=== PATIENT | male | born 1925 | race Hispanic/Latino ===

== ENCOUNTER 2016-07-09 08:26 | Inpatient (IN) | payer MEDICARE ==
[2016-07-09 08:31] VITALS: BMI 23.2
--- NOTE | 2016-07-09 08:52 | ED PDOC ---
Arrival/HPI - General Time Seen by Provider: 07/09/16 08:34 Historian: Patient - History of Present Illness Narrative History of Present Illness (Text): 07/09/16 08:38 A 89 year old female, whose past medical history includes hypertension, BPH, renal insufficiency and Anemia, presents to the emergency department complaining of left hip pain after a mechanical fall. Patient reports recently his left knee has been buckling up on him. While walking today his knee buckled up causing him to fall forward. Patient did not hit his head or loss consciousness. Patient denies any dizziness, lightheadedness, chest pain, or other complaints prior to or after the fall. Patient denies any numbness to the lower extremities. PMD: Dr. Colon Time/Duration: Prior to Arrival Symptom Onset: Sudden Symptom Course: Unchanged Quality: Other Activities at Onset: Rest Context: Walking, Home Past Medical History - Provider Review Nursing Documentation Reviewed: Yes - Tetanus Immunization Tetanus Immunization: Unknown - Cardiac Hx Pacemaker: No - Neurological Hx Paralysis: No - Renal Other/Comment: renal insufficensy - Hematological/Oncological Hx Blood Transfusions: Yes Hx Blood Transfusion Reaction: No - Integumentary Hx Eczema: Yes - Musculoskeletal/Rheumatological Hx Musculoskeletal Disorders: No - Genitourinary/Gynecological Hx Prostate Problems: Yes - Psychiatric Hx Emotional Abuse: No Hx Physical Abuse: No Hx Substance Use: No - Past Surgical History Past Surgical History: No Previous - Anesthesia Hx Anesthesia Reactions: No Hx Malignant Hyperthermia: No - Suicidal Assessment Feels Threatened In Home Enviroment: No Family/Social History - Physician Review Nursing Documentation Reviewed: Yes Family/Social History: Unknown Family HX Smoking Status: Never Smoked Hx Alcohol Use: Yes (pt drinks whiskey daily x1) Hx Substance Use: No Hx Substance Use Treatment: No Allergies/Home Meds Allergies/Adverse Reactions: Allergies Penicillins Allergy (Verified 07/09/16 08:32) RASH Home Medications: Home Meds Medication Instructions Recorded Confirmed Tamsulosin [Flomax] 0.4 mg PO DAILY 11/13/14 07/09/16 Bimatoprost [Lumigan 2.5 ml] 1 drop BOTHEYES HS 02/05/15 07/09/16 Bromfenac Sodium [Prolensa 3 ml] 1 drop LEFTEYE DAILY 02/05/15 07/09/16 Brimonidine 0.15% [Alphagan P 5 Ml] 1 drop OU DAILY 07/09/16 07/09/16 Homatropine HBr [Homatropine 1 drop LEFTEYE DAILY 07/09/16 07/09/16 Hydrobromide] Lisinopril [Zestril] 20 mg PO DAILY 07/09/16 07/09/16 Omeprazole 20 mg PO DAILY 07/09/16 07/09/16 Review of Systems - Physician Review All systems were reviewed & negative as marked: Yes - Review of Systems Constitutional: absent: Fevers Respiratory: absent: SOB Cardiovascular: absent: Chest Pain Musculoskeletal: Other (left hip and left knee pain) Neurological: absent: Dizziness, Focal Weakness, Other (lightheadedness) Physical Exam Vital Signs Reviewed: Yes Vital Signs Temp Pulse Resp BP Pulse Ox 07/09/16 12:07 65 18 146/73 99 07/09/16 08:32 98.7 F 82 18 151/71 H 97 Temperature: Afebrile Blood Pressure: Hypertensive Pulse: Regular Respiratory Rate: Normal Appearance: Positive for: Well-Appearing, Non-Toxic, Comfortable Pain Distress: None Mental Status: Positive for: Alert and Oriented X 3 - Systems Exam Head: Present: Atraumatic, Normocephalic Pupils: Present: PERRL Extroacular Muscles: Present: EOMI Conjunctiva: Present: Normal Mouth: Present: Moist Mucous Membranes Neck: Present: Normal Range of Motion Respiratory/Chest: Present: Clear to Auscultation, Good Air Exchange. No: Respiratory Distress, Accessory Muscle Use Cardiovascular: Present: Regular Rate and Rhythm, Normal S1, S2. No: Murmurs Abdomen: Present: Normal Bowel Sounds. No: Tenderness, Distention, Peritoneal Signs Back: Present: Normal Inspection Upper Extremity: Present: Normal Inspection. No: Cyanosis, Edema Lower Extremity: Present: NORMAL PULSES, Normal ROM (tenderness with motion of the left hip and left knee), Tenderness, Swelling (left knee swelling (chronic)) , Other (left lower extremity shortened and external rotated). No: Edema, Temperature Abnormalties Neurological: Present: GCS=15, CN II-XII Intact, Speech Normal, Motor Func Grossly Intact, Normal Sensory Function Skin: Present: Warm, Dry, Normal Color. No: Rashes Psychiatric: Present: Alert, Oriented x 3, Normal Insight, Normal Concentration Medical Decision Making ED Course and Treatment: 07/09/16 08:38 Impression: A 89 year old male with left hip pain after a mechanical fall. Differential Diagnosis include but are not limited to: fracture vs. dislocation vs. sprain Plan: -- EKG -- Left Hip X-ray -- Left Knee X-ray -- Labs -- Urinalysis -- Reassess and disposition Prior Visits: Notes and results from previous visits were reviewed. The patient last presented to the emergency department on 11/15/14 for evaluation of abnormal labs. Progress Notes: EKG: Ordered, reviewed, and independently interpreted the EKG. Rate : 83 BPM Rhythm : NSR Interpretation : Right bundle branch block, left axis deviation 07/09/16 11:13 Left Hip X-ray Impression: As read by me, shows fracture of the left hip. Case discussed with Dr. oClon, who is aware and agrees with the plan to admit the patient to Med/Surg under his services for Left Hip Fracture. He notes to consult Dr. Morales. I have discussed the results and plan with the patient, who expresses understanding. Patient given the opportunity to ask question, all questions were answered and there is agreement with the plan to be admitted to the hospital. 07/09/16 11:15 Left Hip and Pelvis: Creator : Nathan Hall MD COMPARISON: FINDINGS: There is a displaced comminuted intertrochanteric fracture of the left hip. The pelvis is intact IMPRESSION: There is a displaced comminuted intertrochanteric fracture of the left hip. The pelvis is intact. Left Knee X-ray: Creator : Nathan Hall MD COMPARISON: None. FINDINGS: BONES: Normal. No fracture. JOINTS: Normal. No osteoarthritis. JOINT EFFUSION: None. OTHER FINDINGS: None. IMPRESSION: Negative study - Lab Interpretations Lab Results: 07/09/16 08:50 07/09/16 08:50 Lab Results 07/09/16 08:50: Sodium 142, Potassium 4.3, Chloride 106, Carbon Dioxide 25, Anion Gap 15, BUN 36 H, Creatinine 1.4, Est GFR ( Amer) 58, Est GFR (Non- Af Amer) 48, Random Glucose 115 H, Calcium 8.9, Magnesium 2.0, Total Bilirubin 1.1, AST 56, ALT 44, Alkaline Phosphatase 100, Lactate Dehydrogenase 863 H, Total Creatine Kinase 722 H, CK-MB (CK-2) 6.3 H, CK-MB (CK-2) % 0.9 L, Troponin I 0.02 D, Total Protein 7.0, Albumin 3.8, Globulin 3.2, Albumin/Globulin Ratio 1.2 07/09/16 08:50: WBC 11.2 H, RBC 3.31 L, Hgb 10.8 L, Hct 31.1 L, MCV 94.0, MCH 32.6, MCHC 34.7, RDW 12.9, Plt Count 171, MPV 10.1, Gran % 82.4 H, Lymph % (Auto ) 4.9 L, [place] % (Auto) 12.4 H, Eos % (Auto) 0.1 L, Baso % (Auto) 0.2, Gran # 9.21 H, Lymph # 0.[address] L, [place] # 1.4 H, Eos # 0.0, Baso # 0.02 I have reviewed the lab results: Yes - RAD Interpretation Radiology Orders: 07/09/16 08:49 HIP MIN 2V W/ PELVIS LT [RAD] Stat KNEE LEFT 2 VIEWS (AP & LAT) [RAD] Stat - Medication Orders Current Medication Orders: Acetaminophen (Tylenol 325mg Tab) 650 mg PO Q4H PRN PRN Reason: Pain, moderate (4-7) Home Med (Home Med) 1 unit OU HS MAX Home Med (Home Med) 1 unit OS DAILY MAX Home Med (Home Med) 1 unit OS DAILY MAX Lisinopril (Zestril) 20 mg PO DAILY MAX Pantoprazole Sodium (Protonix Ec Tab) 20 mg PO 0730 MAX Tamsulosin HCl (Flomax) 0.4 mg PO DAILY MAX Discontinued Medications Acetaminophen (Tylenol 325mg Tab) 975 mg PO STAT STA Stop: 07/09/16 08:47 Last Admin: 07/09/16 09:35 Dose: 975 mg Home Med (Home Med) 1 unit OS DAILY MAX - Scribe Statement The provider has reviewed the documentation as recorded by the Dakota Valladares Provider Scribe Attestation: All medical record entries made by the Scribe were at my direction and personally dictated by me. I have reviewed the chart and agree that the record accurately reflects my personal performance of the history, physical exam, medical decision making, and the department course for this patient. I have also personally directed, reviewed, and agree with the discharge instructions and disposition. Disposition/Present on Arrival - Present on Arrival Any Indicators Present on Arrival: No History of DVT/PE: No History of Uncontrolled Diabetes: No Urinary Catheter: No History Surgical Site Infection Following: None - Disposition Have Diagnosis and Disposition been Completed?: Yes Diagnosis: Hip fracture Disposition: HOSPITALIZED Disposition Time: 11:13 Patient Plan: Admission Condition: FAIR
[2016-07-09 09:53] LABS: ADD MANUAL DIFF? NO
[2016-07-09 09:54] LABS: BASO # 0.02 K/mm3 (0.0-2.0); BASO % 0.2 % (0.0-3.0); EOS % 0.1 % (1.5-5.0); GRAN # 9.21 (1.4-6.5); GRAN % 82.4 % (50.0-68.0); HEMATOCRIT 31.1 % (42.0-52.0); LYMPH # 0.6 (1.2-3.4); LYMPH % 4.9 % (22.0-35.0); MEAN CORPUSCULAR HEMOGLOBIN 32.6 pg (25.0-35.0); MEAN CORPUSCULAR HGB CONC 34.7 g/dl (31.0-37.0); MEAN PLATELET VOLUME 10.1 fl (7.0-11.0); MONO # 1.4 (0.1-0.6); MONO % 12.4 % (1.0-6.0); PLATELET COUNT 171 10^3/uL (120.0-450.0); RED CELL DISTRIBUTION WIDTH 12.9 % (11.5-14.5); WHITE BLOOD COUNT 11.2 10^3/ul (4.5-11.0)
[2016-07-09 10:07] LABS: ALB/GLOB RATIO 1.2 (1.1-1.8); BILIRUBIN,TOTAL 1.1 mg/dL (0.2-1.3); CALCIUM 8.9 mg/dL (8.4-10.5); POTASSIUM 4.3 mmol/L (3.6-5.0)
[2016-07-09 10:18] LABS: TROPONIN I 0.02 ng/mL
--- NOTE | 2016-07-09 11:13 | RAD ---
PROCEDURE: Left Knee Radiographs. HISTORY: Pain. COMPARISON: None. FINDINGS: BONES: Normal. No fracture. JOINTS: Normal. No osteoarthritis. JOINT EFFUSION: None. OTHER FINDINGS: None. IMPRESSION: Negative study
--- NOTE | 2016-07-09 11:14 | RAD ---
PROCEDURE: Pelvis and left hip HISTORY: fall r/o fx COMPARISON: TECHNIQUE: Three views FINDINGS: There is a displaced comminuted intertrochanteric fracture of the left hip. The pelvis is intact IMPRESSION: There is a displaced comminuted intertrochanteric fracture of the left hip. The pelvis is intact
--- NOTE | 2016-07-09 12:56 | RAD ---
HISTORY: med clearance COMPARISON: 10/19/2014 FINDINGS: LUNGS: No active pulmonary disease. PLEURA: No significant pleural effusion identified, no pneumothorax apparent. CARDIOVASCULAR: Normal. OSSEOUS STRUCTURES: No significant abnormalities. VISUALIZED UPPER ABDOMEN: Normal. OTHER FINDINGS: None. IMPRESSION: No active disease.
[2016-07-09 13:05] LABS: URINE BILIRUBIN NEGATIVE (NEGATIVE); URINE BLOOD TRACE-INTACT (NEGATIVE); URINE GLUCOSE (UA) NEGATIVE (NEGATIVE); URINE KETONE NEGATIVE (NEGATIVE); URINE LEUKOCYTE ESTERASE NEGATIVE Leu/uL (NEGATIVE); URINE PROTEIN 30 mg/dL (<30 mg/dL); URINE UROBILINOGEN 0.2 E.U./dL (<1 E.U./dL)
[2016-07-09 13:08] LABS: URINE APPEARANCE SL CLOUDY (CLEAR); URINE COLOR YELLOW (YELLOW)
[2016-07-09 13:13] LABS: URINE BACTERIA TRACE (NEG); URINE RBC 0 - 2 /hpf (0-2); URINE WBC 0 - 2 /hpf (0-6)
[2016-07-09 14:06] LABS: INR 1.1 (0.93-1.08); PARTIAL THROMBOPLASTIN TIME 30.7 Seconds (23.7-30.8)
[2016-07-09] MEDS ORDERED: Sodium Chloride 0.9% 1,000 ML IV SCH (16:15)
--- NOTE | 2016-07-09 17:12 | CARD ---
APPROVED REPORT EKG Measurement Heart [id number] <Conclusion> Normal sinus rhythm Left axis deviation Right bundle branch block Abnormal ECG
--- NOTE | 2016-07-09 17:39 | CP.PCM.CON ---
History of Present Illness - History of Present Illness History of Present Illness: Patient is an 89 y/o male with hx HTN, BPH, renal insufficiency, chronic anemia who presented to the ED via EMS s/p fall at home. Patient states his knees gave out last night while at home. He fell to the floor onto his left side injuring the left hip. Patient denies syncope, LOC or head trauma. He reports multiple similar falls recently. Currently the patient complains of left hip pain, which is worse with ROM. He denies numbness or parasthesias to the left limb. He denies headache, back pain, dizziness or focal weakness. The patient also reveals a history of chronic sacral wounds. He states he has been treated for these with steroid cream. He denies discharge from wounds, fever or chills. Review of Systems - Constitutional Constitutional: absent: Anorexia, Chills - EENT Eyes: absent: Blurred Vision, Change in Vision Nose/Mouth/Throat: absent: Nasal Congestion - Cardiovascular Cardiovascular: absent: Chest Pain, Dyspnea - Respiratory Respiratory: absent: Cough, Dyspnea - Gastrointestinal Gastrointestinal: absent: Abdominal Pain, Diarrhea, Hematochezia, Melena, Nausea , Vomiting - Genitourinary Genitourinary: absent: Dysuria, Hematuria - Musculoskeletal Musculoskeletal: absent: Back Pain, Neck Pain - Integumentary Integumentary: absent: Pruritus, Rash Additional comments: chronic mild decubitous wound - Neurological Neurological: absent: Dizziness, Numbness, Focal Weakness, Syncope - Psychiatric Psychiatric: absent: Anxiety, Depression - Endocrine Endocrine: absent: Fatigue Past Patient History - Tetanus Immunizations Tetanus Immunization: Unknown - Past Social History Smoking Status: Never Smoked - CARDIAC Hx Pacemaker: No - NEUROLOGICAL Hx Paralysis: No - HEENT Hx HEENT Problems: Yes Hx Cataracts: Yes Hx Glaucoma: Yes - RENAL Other/Comment: renal insufficensy - HEMATOLOGICAL/ONCOLOGICAL Hx Blood Transfusions: Yes Hx Blood Transfusion Reaction: No - INTEGUMENTARY Hx Eczema: Yes - MUSCULOSKELETAL/RHEUMATOLOGICAL Hx Musculoskeletal Disorders: No - GASTROINTESTINAL Hx Gastrointestinal Disorders: Yes Hx Gastroesophageal Reflux: Yes - GENITOURINARY/GYNECOLOGICAL Hx Prostate Problems: Yes - PSYCHIATRIC Hx Emotional Abuse: No Hx Physical Abuse: No Hx Substance Use: No - SURGICAL HISTORY Hx Surgeries: Yes Hx Eye Surgery: Yes (both eyes) Hx Tonsillectomy: Yes - ANESTHESIA Hx Anesthesia Reactions: No Hx Malignant Hyperthermia: No Meds Allergies/Adverse Reactions: Allergies Allergy/AdvReac Type Severity Reaction Status Date / Time Penicillins Allergy RASH Verified 07/09/16 08:32 - Medications Medications: Current Medications Acetaminophen (Tylenol 325mg Tab) 650 mg PO Q4H PRN PRN Reason: Pain, moderate (4-7) Enoxaparin Sodium (Lovenox) 30 mg SC ONCE ONE PRN Reason: Protocol Stop: 07/09/16 20:01 Home Med (Home Med) 1 unit OU HS MAX Home Med (Home Med) 1 unit OS DAILY MAX Home Med (Home Med) 1 unit OS DAILY MAX Sodium Chloride (Sodium Chloride 0.9%) 1,000 mls @ 80 mls/hr IV .[id number] MAX Lisinopril (Zestril) 20 mg PO DAILY MAX Pantoprazole Sodium (Protonix Ec Tab) 20 mg PO 0730 MAX Tamsulosin HCl (Flomax) 0.4 mg PO DAILY MAX Physical Exam - Constitutional Appears: Non-toxic, No Acute Distress - Head Exam Head Exam: ATRAUMATIC, NORMOCEPHALIC - Eye Exam Eye Exam: EOMI, PERRL - ENT Exam ENT Exam: Mucous Membranes Moist - Respiratory Exam Respiratory Exam: Clear to Auscultation Bilateral. absent: Rales, Rhonchi, Wheezes - Cardiovascular Exam Cardiovascular Exam: REGULAR RHYTHM, +S1, +S2 - GI/Abdominal Exam GI & Abdominal Exam: Normal Bowel Sounds, Soft. absent: Tenderness - Extremities Exam Extremities exam: Negative for: calf tenderness, normal inspection (left LE abducted, externally rotated with bruising over left lateral hip ), pedal edema - Neurological Exam Neurological exam: Alert, CN II-XII Intact, Oriented x3 - Psychiatric Exam Psychiatric exam: Normal Affect, Normal Mood - Skin Additional comments: stage I wounds to sacrum without purulent drainage or evidence of infection Results - Vital Signs Recent Vital Signs: Last Vital Signs Temp 97.9 F 07/09/16 16:00 Pulse 69 07/09/16 16:00 Resp 18 07/09/16 16:00 BP 134/67 07/09/16 16:00 Pulse Ox 98 07/09/16 16:00 - Labs Result Diagrams: 07/09/16 08:50 07/09/16 08:50 Labs: Laboratory Results - last 24 hr 0507/09/16 07/09/16 11:35 11:35 12:30 PT 11.9 H INR 1.10 H APTT 30.7 Urine Color Yellow Urine Appearance Sl cloudy Urine pH 6.0 Ur Specific [place] 1.025 Urine Protein 30 H Urine Glucose (UA) Negative Urine Ketones Negative Urine Blood Trace-intact H Urine Nitrate Negative Urine Bilirubin Negative Urine Urobilinogen 0.2 Ur Leukocyte Esterase Negative Urine RBC 0 - 2 Urine WBC 0 - 2 Urine Bacteria Trace Blood Type B POSITIVE Antibody Screen Negative BBK History Checked Patient has bt Assessment & Plan - Assessment and Plan (Free Text) Assessment: 89 y/o male with hx HTN, BPH, renal insufficiency, chronic sacral wounds presenting s/p mechanical fall with associated left hip fracture. Patient with hx of chronic stage I sacral wounds without evidence of infection or necrosis. - no surgical intervention at this time - noted possible ortho intervention tomorrow - continue optifoam dressings - keep sacral area clean and dry - will d/w Dr. Burch
--- NOTE | 2016-07-09 19:06 | CON ---
DATE: 07/09/2016 HISTORY OF PRESENT ILLNESS: The patient is an 89-year-old male who slipped and fell, sustained a lef t hip fracture. When he was seen in the ER, x-rays confirmed intertrochanteric fracture, moderately displaced. No loss of consciousness. He was admitted to Dr. Colon' care. I explained to the patie nt the option to fix this is an open reduction internal fixation which is associated with less compli cations, from doing nothing, because after surgery the pain will be controlled and the fracture stabi lized and the patient can get up out of bed with help and go for physical therapy. The risks are the mild blood loss. He may need blood replacement. He is going to be seen by Dr. Colon and a cardiol ogist and if he is approved for surgery, the anesthesia will probably be general and we will stabiliz e that left hip with intramedullary wilmer and a pin, and hopefully we can do this tomorrow. FINAL DIAGNOSIS: Displaced intertrochanteric fracture, left hip. PLAN: Plan on doing ORIF left hip when he is medically and cardiac-machado cleared for surgery. Nathan Morales DO cc: [id number] TT: 07/09/2016 19:05:22 Confirmation # [id number] Dictation # [id number] rosmery
--- NOTE | 2016-07-09 19:21 | HP ---
An 89-year-old male, was brought to [facility] by [facility]. According to the ambulance service and the admitting nurse on the floor, the patient states that he fell last mahesh jammie and lay on the floor and this morning, a neighbor on the floor in his apartment house called Eufemia asif, who had to break down the door to go in and get him. The patient denies any particular history of chest pain or shortness of breath. He says he has been having some difficulty with his knees, rec ently bought a brace for his left knee and he fell during the night. SOCIAL HISTORY: Being a nonsmoker, nondrinker, nondrug user. ALLERGIES: HE HAS AN ALLERGY TO PENICILLIN. He states that he has recently been treated by urology for urinary tract infection. HOME MEDICATIONS: Homatropine hydrobromide 1 drop to the left eye daily, Alphagan P 0.15% one drop t o the left eye daily, Zestril 20 mg daily, Prolensa 1 drop to the left eye daily, Lumigan 2.[address] op to both eyes at bedtime, omeprazole 20 mg daily and Flomax 0.4 mg. PAST MEDICAL HISTORY: Gastritis, history of anemia in the past, history of BPH, history of urinary t ract infection, history of macular degeneration, retina detach, history of hypertension, history of r enal insufficiency. REVIEW OF SYSTEMS: Twelve systems are reviewed. Pertinent findings is that the patient appears to b e alert and oriented to time and place and person. He does state that the history as stated above is correct. PHYSICAL EXAMINATION: VITAL SIGNS: His temp is 97.9, his pulse is 69, his blood pressure is 134/67, his oxygen saturation is 98% on room air, his respiratory rate is 18. NECK: Supple. LUNGS: Clear. HEART: Has an S1, S2 rhythm. ABDOMEN: Soft, positive bowel sounds. EXTREMITIES: There is some mild erythema in the lower gluteal area. The chest x-ray is reported as showing no active disease. The x-ray of the left knee is reported as being negative. X-ray of the hip and pelvis shows that there is a displaced comminuted intertrochant jairon fracture of the left hip. The pelvis is intact. The electrocardiogram is being reported as showing right bundle branch block with left axis deviation and normal sinus rhythm. LABORATORY DATA: Shows sodium 142, potassium 4.3, chloride 106, the CO2 is 25, the BUN is 36, the cr eatinine is 1.4. His random blood sugar is 115. His liver functions are normal. His LDH is 863. H is total CK is 722. His CK-MB is 6.3. The troponin is 0.02. His PT is 11.9 with an INR of 1.11, th e PTT is 30.7. The CBC shows a WBC of 11.2, RBC 3.31, hemoglobin 10.8, hematocrit 31.1, platelet cou nt 171. The urinalysis shows trace blood, 0-2 WBCs, 0-2 RBCs. IMPRESSION: An 89-year-old male with: 1. A reported fall at home, lying on the floor during the night for an undetermined period of time w ith a left hip fracture. 2. Degree of memory issues. 3. Anemia. 4. Benign prostatic hypertrophy history. 5. Macular degeneration history. 6. Left bundle branch block by history. PLAN: 1. The patient will get a CT of his head. 2. A neurology evaluation. 3. An orthopedic evaluation. 4. A cardiology evaluation as well as a GI evaluation for his anemia with a history of gastritis in the past. All the clinical findings have been discussed with the consultants, with the nursing staff, with the patient and with the family, patient's daughter, Eileen. Ana Colon MD cc: [id number] TT: 07/09/2016 19:20:16 en
[2016-07-09] MEDS ORDERED: Enoxaparin 30 mg Syringe SC ONE (20:00)
--- NOTE | 2016-07-09 20:36 | CON ---
DATE: 07/09/2016 HISTORY OF PRESENT ILLNESS: This is an 89-year-old white male with past medical history of hypertens ion, renal insufficiency, anemia. The patient came here because he fell at home and his knees gave o ut last night, fell to the floor and fractured his left hip. Did not lose consciousness. Complained of left hip pain, which is worse on movement. No numbness, tingling in arms, legs or face. PAST MEDICAL HISTORY: Hypertension, prostate hypertrophy, renal insufficiency, chronic anemia. ALLERGIES: ALLERGIC TO PENICILLIN. REVIEW OF SYSTEMS: A 10-point review of systems was negative except fracture of the left hip. PHYSICAL EXAMINATION: HEENT: Normocephalic, atraumatic. NECK: Supple. NEUROLOGIC: The patient awake, oriented to self. Cranial nerves II through XII were tested. Pupils reactive. EOMs intact. Visual phillips full. No facial asymmetry. Tongue midline. MOTOR EXAMINATION: Moves all the extremities equally except left lower extremity, which is a fractur e of the left hip. LABORATORY DATA: WBC 11.1, hemoglobin 10.8, hematocrit 31.1, platelets 171. Sodium 142, potassium 4 .3, chloride 106, CO2 of 25, glucose 115, BUN 36, creatinine 1.4. IMPRESSION AND PLAN: A CAT scan of the head is ordered, not done yet. The patient will have surgery possibly tomorrow morning. I spoke to Dr. Colon. We will follow up. Bhanu Borden MD cc: [id number] TT: 07/09/2016 20:35:47 Confirmation # [id number] Dictation # [id number] rosmery
--- NOTE | 2016-07-09 20:39 | CT ---
EXAM: CT Head Without Intravenous Contrast CLINICAL HISTORY: 89 years old, male; Injury or trauma; Fall; Initial encounter; Blunt trauma (contusions or hematomas); Consciousness not specified; Additional info: Fall forgetfulness TECHNIQUE: Axial computed tomography images of the head/brain without intravenous contrast. This CT exam was performed using one or more of the following dose reduction techniques: automated exposure control, adjustment of the mA and/or kV according to patient size, and/or use of iterative reconstruction technique. EXAM DATE/TIME: 07/09/2016 4:29 PM COMPARISON: There are no prior studies for comparison. FINDINGS: Brain: There is dilatation of sulci gyri and ventricles. There is no midline shift. There is decreased attenuation in periventricular white matter. There are no focal masses. There are no focal hemorrhages. García-white differentiation is visualized. Ventricles: See above. Bones: Cranial vault is intact. There are no acute orbital abnormalities. There is an old fracture of the left lamina papyracea. There is an old fracture of the lateral wall of the left orbit. Soft tissues: unremarkable Sinuses: There is no acute sinusitis. Ears and mastoids: Middle ears and mastoids are unremarkable. Dental: Streak artifact from dental fillings degrades image quality. IMPRESSION: No acute intracranial abnormality; old left orbital fractures
[2016-07-09] MEDS ORDERED: LUMIGAN OU SCH (22:00)
[2016-07-09] MEDS ORDERED: Home Med 1 UNIT OU SCH (22:00)
[2016-07-09] MEDS ORDERED: LUMIGAN OU ONE (23:45)
[2016-07-10 07:30] LABS: HEMATOCRIT 28.8 % (42.0-52.0); MEAN CELL VOLUME 94.1 fL (80.0-105.0); MEAN PLATELET VOLUME 9.4 fl (7.0-11.0); WHITE BLOOD COUNT 8.2 10^3/ul (4.5-11.0)
[2016-07-10 07:53] LABS: ALB/GLOB RATIO 1.1 (1.1-1.8); ALKALINE PHOSPHATASE 83 U/L (38-133); ALT/SGPT 38 U/L (7-56); AST/SGOT 43 U/L (15-59); BLOOD UREA NITROGEN 26 mg/dL (7-21); CALCIUM 8.3 mg/dL (8.4-10.5); CARBON DIOXIDE 24 mmol/L (21-33); CHLORIDE 109 mmol/L (98-107); GFR AFRICAN-AMERICAN > 60; GLUCOSE,RANDOM 96 mg/dL (70-110); POTASSIUM 4.3 mmol/L (3.6-5.0); SODIUM 142 mmol/L (132-148); TOTAL PROTEIN 6.2 g/dL (5.8-8.3)
--- NOTE | 2016-07-10 07:58 | CP.PCM.PN ---
Subjective - Date & Time of Evaluation Date of Evaluation: 07/10/16 Time of Evaluation: 07:00 - Subjective Subjective: See full dictated consult. He is at average cardiac risk for left hip surgery. No absolute contraindication. Await AM labs. Thank You. Objective - Vital Signs/Intake and Output Vital Signs (last 24 hours): Temp Pulse Resp BP Pulse Ox 97.9 F 69 18 134/67 98 07/09/16 17:40 07/09/16 17:40 07/09/16 17:40 07/09/16 17:40 07/09/16 16:00 Intake and Output: 07/10/16 07/10/16 06:59 18:59 Intake Total 180 Balance 180 - Medications Medications: Current Medications Acetaminophen (Tylenol 325mg Tab) 650 mg PO Q4H PRN PRN Reason: Pain, moderate (4-7) Home Med (Home Med) 1 unit OS DAILY MAX Home Med (Home Med) 1 unit OS DAILY MAX Home Med (Home Med) 1 unit OU HS [facility] Sodium Chloride (Sodium Chloride 0.9%) 1,000 mls @ 80 mls/hr IV .[id number] [facility] Last Admin: 07/09/16 17:15 Dose: 80 mls/hr Lisinopril (Zestril) 20 mg PO DAILY [facility] Pantoprazole Sodium (Protonix Ec Tab) 20 mg PO 0730 MAX Tamsulosin HCl (Flomax) 0.4 mg PO DAILY MAX - Labs Labs: 07/10/16 07:00 PT 11.9 Seconds (9.9-11.8) H 07/09/16 11:35 INR 1.10 (0.93-1.08) H 07/09/16 11:35 APTT 30.7 Seconds (23.7-30.8) 07/09/16 11:35
[2016-07-10] MEDS ORDERED: Bupivacaine 0.5% Inj(30mL) ONE (08:11)
[2016-07-10] MEDS ORDERED: Propofol 10 mg/ml Inj (20 ML) ONE (08:36)
[2016-07-10] MEDS ORDERED: Rocuronium 10 mg/ml (5 ml) ONE (08:36)
[2016-07-10] MEDS ORDERED: ePHEDrine 50 mg/ml Inj ONE (08:36)
[2016-07-10] MEDS ORDERED: Phenylephrine 10 mg/ml Inj ONE (08:36)
[2016-07-10] MEDS: [UNRECOGNIZED DRUG - OTHER] OS SCH (09:11)
[2016-07-10] MEDS: Pantoprazole 20 mg EC Tab PO SCH (09:11)
[2016-07-10] MEDS ORDERED: Neostigmine Methylsulfate 3mg/3ml Syringe IV ONE (09:58)
[2016-07-10] MEDS ORDERED: Home Med 1 UNIT OS SCH ×3 (10:00)
[2016-07-10] MEDS ORDERED: Esmolol 100 mg/10ml Inj IV ONE (10:16)
--- NOTE | 2016-07-10 10:16 | PN ---
DATE: 07/10/2016 SUBJECTIVE: An 89-year-old male status post fall at home with fracture of the left hip. PHYSICAL EXAMINATION GENERAL: The patient is alert and oriented x 3. NECK: Supple. There is no JVD. LUNGS: Clear. HEART: Regular S1, S2 rhythm. ABDOMEN: Soft with positive bowel sounds. EXTREMITIES: Show no evidence of edema. NEUROLOGIC: He is alert and oriented x 3. LABORATORY DATA: Shows a WBC of 8.2, RBC 3.06, hemoglobin 9.8, hematocrit 28.8, platelet count 147. Chemistry shows a sodium 142, potassium 4.3, chloride 109, BUN is 26, the creatinine is 1.3. LFTs a re normal. His total CK is now 379. The patient was seen this morning by Dr. Yuan who states that the patient is at average cardiac ris k for surgery. He was seen last evening by Dr. Borden of the neurology service. CT scan of the head was reported as showing no acute findings and Dr. Borden told surgery Dr. Morales that he was c leared for surgery. ASSESSMENT AND PLAN: The patient will have left hip repair today and we will continue to follow the patient's lab work. He has medications consisting of Flomax 0.4 mg daily. He is on multiple eyedrop s for macular degeneration and history of retinal tear. He is on Protonix 20 mg daily. He is on IV fluids, Tylenol p.r.n. He is on lisinopril 20 mg daily. Continue current level of care. Ana Colon MD cc: [id number] TT: 07/10/2016 10:16:16 Confirmation # [id number] Dictation # [id number] drew
[2016-07-10] MEDS ORDERED: Clindamycin 300 MG in Sodium Chloride 0.9% 50 ML IVPB STA (10:35)
[2016-07-10] MEDS ORDERED: Lactated Ringer's 1,000 ML IV SCH (10:38)
[2016-07-10] MEDS ORDERED: HYDROmorphone 0.5 mg/0.5 ml ISec IVP PRN (10:38)
[2016-07-10] MEDS ORDERED: HYDROmorphone 0.5 mg/0.5 ml ISec SC PRN (10:39)
--- NOTE | 2016-07-10 11:32 | CON ---
DATE: 07/10/2016 INDICATIONS: Fall, hip fracture, preoperative evaluation. HISTORY OF PRESENT ILLNESS: This is an 89-year-old man known to me with history of hypertension and chronic right bundle branch block, who fell at home after his knees buckled. He was on the floor overnight and subsequently found by a friend and brought to the Emergency Room where he was found to have had a left hip fracture. He denies syncope, palpitations, chest pain and shortness of breath. He states that his knees buckled and he fell to the floor. There is no orthopnea, PND, syncope, dizziness, lightheadedness, vertigo, edema, claudication, fever, chills, cough, sputum production, hemoptysis, abdominal pain, nausea, vomiting, diarrhea, constipation, or melena. PAST MEDICAL HISTORY: Notable for hypertension and chronic right bundle branch block, BPH, dementia which has been mild, macular degeneration, anemia, renal insufficiency and he has been found to have a stage I sacral decubitus. There is no history of myocardial infarction, angina, rheumatic fever, congestive heart failure, diabetes, stroke, TIA, or gout. MEDICATIONS: At the time of admission included eyedrops, lisinopril, Flomax and omeprazole. ALLERGIES: HE NOTES AN ALLERGY TO PENICILLIN. SOCIAL HISTORY: He is . He lives at home alone. He does not smoke. He does not drink alcohol. FAMILY HISTORY: Noncontributory. REVIEW OF SYSTEMS: A 10-point review of systems is otherwise unremarkable except as noted above. PHYSICAL EXAMINATION: GENERAL: He is a well-developed, elderly man, lying in bed on 5R, in no acute distress. VITAL SIGNS: Unremarkable. His pulse is 69. He is afebrile. Blood pressure 134/67, respirations 18, O2 sat 98% on room air. HEENT: Reveals no neck vein distention, thyromegaly, or carotid bruits. Mucous membranes are moist. Conjunctivae are pink. NECK: Supple. LUNGS: Verma clear. HEART: Revealed normal first and second heart sounds. There is a soft systolic murmur along the left sternal border. ABDOMEN: Soft. Bowel sounds are present. No mass, organomegaly, tenderness, rebound, or guarding. EXTREMITIES: Revealed no cyanosis, clubbing, or edema. NEUROLOGIC: Awake, alert and oriented. PSYCHIATRIC: Normal as to mood and affect. SKIN: Warm and dry. No rash or cellulitis. LABORATORY AND IMAGING: Hip and pelvis x-ray reveals a displaced comminuted intertrochanteric fracture, the left hip. The pelvis is intact. A left knee x- ray is negative. Chest x-ray reveals no active disease. A CT scan of the head reveals no acute intracranial abnormality, old left orbital fracture noted. EKG reveals regular sinus rhythm, right bundle branch block, left axis deviation , no significant change compared to prior EKG. White count 11,200, repeat 8200 , hemoglobin 10.8, repeat 9.8, hemoglobin 31.1 repeat 28.8, platelet count is normal. PT, INR, PTT unremarkable. Electrolytes normal. BUN 36, creatinine 1.4, blood sugar 115. Magnesium 2.0. LFTs unremarkable. CK elevated at 722. Troponin 0.02. IMPRESSION: The patient is an 89-year-old man with hypertension, chronic right bundle branch block with arthritic knee problems who fell at home due to buckling of his knees. There is no history of syncope, palpitations, lightheadedness, or vertigo. He has fallen before, but has not sustained a significant injury in the past. There is some mild dementia as well. Additionally, he has been found to have a stage I sacral decubitus and anemia which is somewhat chronic, but worse on current lab testing. He should be considered an average cardiac risk for planned orthopedic surgery to repair the left hip. He is undergoing a GI evaluation and his anemia will be evaluated. He is getting IV fluids. I will repeat his blood work this morning including CK. He is getting IV fluids for possible mild rhabdomyolysis. He is getting Flomax, Protonix, lisinopril. He is having a neurologic evaluation as well. I have discussed the case with Dr. Colon. I will follow along and make additional recommendations based on his clinical course. Dean Yuan MD cc: [id number] TT: 07/10/2016 11:31:54 Confirmation # [id number] Dictation # [id number] jn ROXANN
--- NOTE | 2016-07-10 12:00 | OP ---
PROCEDURE DATE: 07/10/2016 PREOPERATIVE DIAGNOSIS: Displaced intertrochanteric fracture, left hip. POSTOPERATIVE DIAGNOSIS: Displaced intertrochanteric fracture, left hip. PROCEDURE: Open reduction internal fixation with a Biomet peritroch wilmer, a Fixus nail 180 mm long at a 130-degree angle with a lag screw of 110 mm long and 1 locking screw distally of 5 mm x 34 mm PROCEDURE: After being taken to the OR, left hip prepped and draped in sterile fashion on the fractu re table. Antibiotics given preoperative. HE IS ALLERGIC TO PENICILLIN, so we gave him clindamycin 600 mg. Prepped and draped the leg. X-rays showed good position of the fracture in traction on AP a nd internal rotation view lateral. So at this time, after prepping and draping, we made a 2 cm incisi on, 3 cm proximal to greater trochanter and put a threaded guidewire into the proximal femur and then over reamed it for 7 cm with a 17 mm reamer. Then we placed an already arranged IM wilmer through the fenestration that we had reamed and put it into the proper area to allow us to put a second incision in it on the same jig to go into the head and neck with a threaded tip guidewire. Once there was goo d position, measured 110 mm long, so we overreamed this with the appropriate reamer, 11 mm, and then put in the lag screw, which was 10.5 x 110 mm. This secured it proximally, the wilmer for the fracture. The traction was removed and then put in the distal locking screw with the help of the jig also and a third incision. X-rays show good position of the fracture and the hardware. The jig was removed. Three wounds were irrigated with normal saline and closed in layers, starting with the fascia layer with 0 Vicryl, subQ with 2-0 Vicryl and skin with stainless steel jacquelyn. The patient taken to rec overy room in good condition. Nathan Morales DO cc: [id number] TT: 07/10/2016 12:00:05 rosmery
[2016-07-10 15:08] LABS: ADD MANUAL DIFF? NO
--- NOTE | 2016-07-10 15:08 | RAD ---
PROCEDURE: Fluoroscopy up to 1 hour HISTORY: ORIF LT HIP COMPARISON: TECHNIQUE: Fluoroscopy was provided in the operating room. 50 seconds of fluoroscopy time were used. Four images were submitted FINDINGS: The study shows internal fixation of a trochanteric fracture left hip IMPRESSION: As above
[2016-07-10 15:09] LABS: BASO # 0.02 K/mm3 (0.0-2.0); BASO % 0.2 % (0.0-3.0); EOS % 0.1 % (1.5-5.0); GRAN # 9.48 (1.4-6.5); GRAN % 90.2 % (50.0-68.0); HEMATOCRIT 29.3 % (42.0-52.0); LYMPH # 0.4 (1.2-3.4); LYMPH % 3.9 % (22.0-35.0); MEAN CELL VOLUME 94.8 fL (80.0-105.0); MEAN CORPUSCULAR HEMOGLOBIN 32.7 pg (25.0-35.0); MEAN CORPUSCULAR HGB CONC 34.5 g/dl (31.0-37.0); MEAN PLATELET VOLUME 9.7 fl (7.0-11.0); MONO # 0.6 (0.1-0.6); MONO % 5.6 % (1.0-6.0); PLATELET COUNT 166 10^3/uL (120.0-450.0); RED CELL DISTRIBUTION WIDTH 13.1 % (11.5-14.5); WHITE BLOOD COUNT 10.5 10^3/ul (4.5-11.0)
[2016-07-10] MEDS ORDERED: Clindamycin 300 MG in Sodium Chloride 0.9% 50 ML IVPB ONE (15:15)
--- NOTE | 2016-07-10 21:20 | CP.PCM.PN ---
Subjective - Date & Time of Evaluation Date of Evaluation: 07/10/16 Time of Evaluation: 21:15 - Subjective Subjective: Patient was seen at bedside at the request of nurse Kristen as per whom patient had heart rate of 104/min about 5 PM and PMD wants patient be evaluated by house physician. has no complaints now. Denies chest pain, sob, nausea, sweating , palpitation, pain at operative site. Denies having pain, anxiety or any symptoms at about 5 PM. He is S/P left hip ORIF. T97.9*F,108/55,93/Min,18/min,Pulse ox 92 % on RA. Has not been keeping nasal canula on. This 89 year old white male was admitted after a fall for intertrochantric fractrue of left hip. Has PMH of HTN, BPH, anemia, renal insufficiency, PCN allergy, Objective - Vital Signs/Intake and Output Vital Signs (last 24 hours): Temp Pulse Resp BP Pulse Ox 97.7 F 93 H 20 108/55 L 92 L 07/10/16 20:50 07/10/16 20:50 07/10/16 20:50 07/10/16 20:50 07/10/16 20:50 Intake and Output: 07/10/16 07/11/16 18:59 06:59 Intake Total 480 Balance 480 - Medications Medications: Current Medications Acetaminophen (Tylenol 325mg Tab) 650 mg PO Q4H PRN PRN Reason: Pain, moderate (4-7) Enoxaparin Sodium (Lovenox) 30 mg SC DAILY MAX PRN Reason: Protocol Home Med (Home Med) 1 unit OS DAILY MAX Last Admin: 07/10/16 09:11 Dose: Not Given Home Med (Home Med) 1 unit OS DAILY MAX Last Admin: 07/10/16 09:11 Dose: Not Given Home Med (Home Med) 1 unit OU HS MAX Hydromorphone HCl (Dilaudid) 0.5 mg SC Q4H PRN PRN Reason: Pain, severe (8-10) Sodium Chloride (Sodium Chloride 0.9%) 1,000 mls @ 80 mls/hr IV .[id number] MAX Last Admin: 07/09/16 17:15 Dose: 80 mls/hr Lisinopril (Zestril) 20 mg PO DAILY MAX Last Admin: 07/10/16 09:11 Dose: Not Given Pantoprazole Sodium (Protonix Ec Tab) 20 mg PO 0730 [facility] Last Admin: 07/10/16 09:11 Dose: Not Given Tamsulosin HCl (Flomax) 0.4 mg PO DAILY [facility] Last Admin: 07/10/16 09:11 Dose: Not Given - Labs Labs: 07/10/16 14:40 07/10/16 07:00 PT 11.9 Seconds (9.9-11.8) H 07/09/16 11:35 INR 1.10 (0.93-1.08) H 07/09/16 11:35 APTT 30.7 Seconds (23.7-30.8) 07/09/16 11:35 - Constitutional Appears: Well, No Acute Distress - Head Exam Head Exam: ATRAUMATIC, NORMAL INSPECTION, NORMOCEPHALIC - Eye Exam Eye Exam: Normal appearance - ENT Exam ENT Exam: Normal External Ear Exam - Neck Exam Neck Exam: Normal Inspection - Respiratory Exam Respiratory Exam: Clear to Ausculation Bilateral, NORMAL BREATHING PATTERN. absent: Accessory Muscle Use, Rales, Rhonchi, Wheezes, Respiratory Distress, Stridor - Cardiovascular Exam Cardiovascular Exam: REGULAR RHYTHM, +S1 (Normal.), +S2 (Normal.). absent: JVD - GI/Abdominal Exam GI & Abdominal Exam: Normal Bowel Sounds - Rectal Exam Rectal Exam: Deferred - Extremities Exam Additional comments: Left hip dressing clean ,dry. No neurovascular deficit in left lower extremity. - Back Exam Back Exam: NORMAL INSPECTION - Neurological Exam Neurological Exam: Alert, Oriented x3 - Psychiatric Exam Psychiatric exam: Normal Affect, Normal Mood - Skin Skin Exam: Normal Color Assessment and Plan - Assessment and Plan (Free Text) Assessment: A/P:Resolved tachycardia. S/P left hip ORIF. Hypoxia- 2* post anesthesia, atelectasis? -Not keeping nasal canula on. HTN. BPH. Anemia. Oxygen 2 L/M by nasal canular. Observation. Discussed with .
[2016-07-10] MEDS: LUMIGAN OU SCH (22:40)
[2016-07-11 07:59] LABS: ADD MANUAL DIFF? NO
[2016-07-11 08:08] LABS: BASO # 0.01 K/mm3 (0.0-2.0); BASO % 0.1 % (0.0-3.0); EOS # 0.1 (0.0-0.7); EOS % 1.1 % (1.5-5.0); GRAN # 7.05 (1.4-6.5); GRAN % 74.2 % (50.0-68.0); HEMATOCRIT 24.3 % (42.0-52.0); LYMPH # 1.2 (1.2-3.4); LYMPH % 12.8 % (22.0-35.0); MEAN CELL VOLUME 93.1 fL (80.0-105.0); MEAN CORPUSCULAR HEMOGLOBIN 32.2 pg (25.0-35.0); MEAN CORPUSCULAR HGB CONC 34.6 g/dl (31.0-37.0); MEAN PLATELET VOLUME 9.4 fl (7.0-11.0); MONO # 1.1 (0.1-0.6); MONO % 11.8 % (1.0-6.0); PLATELET COUNT 137 10^3/uL (120.0-450.0); WHITE BLOOD COUNT 9.5 10^3/ul (4.5-11.0)
[2016-07-11 08:20] LABS: BILIRUBIN,TOTAL 0.7 mg/dL (0.2-1.3); POTASSIUM 4.1 mmol/L (3.6-5.0); TOTAL PROTEIN 5.4 g/dL (5.8-8.3)
[2016-07-11 08:26] LABS: TROPONIN I 0.04 ng/mL
[2016-07-11] MEDS: Pantoprazole 20 mg EC Tab PO SCH (08:30)
[2016-07-11] MEDS ORDERED: Sodium Chloride 0.9% 1,000 ML IV SCH (09:07)
--- NOTE | 2016-07-11 09:39 | PN ---
DATE: 07/11/2016 First day postop left hip fracture. The patient is room 572, bed 2. He is much more alert and orien abdoulaye and waiting to get up out of bed and walk. His hip pain is minimal and will address the left kne e swelling tomorrow, give him another day and I will aspirate the knee if there is more fluid in ther e and give him Depo-Medrol injection for mild osteoarthritis and traumatic synovitis from a fall. Hi s hemoglobin is postop 8.4, but he looks very good and I will slow down the IVs and get him up out of bed, because if I gave blood they are not going to get him up out of bed today and he does not look like he needs the blood replacement, will just repeat it in the morning if Dr. Colon thinks so. Mary cortes he says I will agree with. So, otherwise he is doing well, minimal pain and he has the SCD sto ckings on and he is on Lovenox low dose for DVT prophylaxis. I will watch him closely; hopefully, ge t him to a subacute rehab at [facility] in a couple of days. Nathan Morales DO cc: [id number] TT: 07/11/2016 09:38:40 Confirmation # [id number] Dictation # [id number] drew
[2016-07-11] MEDS: [UNRECOGNIZED DRUG - OTHER] OS SCH (10:15)
[2016-07-11] MEDS: Enoxaparin 30 mg Syringe SC SCH (10:16)
--- NOTE | 2016-07-11 10:35 | PN ---
DATE: 07/11/2016 An 89-year-old male postop day 1, status post left hip fracture surgery. The patient is alert and or iented x 3. Nursing staff relates that there were no particular problems during the night. PHYSICAL EXAMINATION: VITAL SIGNS: His temp is 97.6. His blood pressure is 130/51. His pulse is 78, his oxygen sat is 94 % on room air. NECK: Supple. LUNGS: Clear. HEART: An S1, S2 rhythm. ABDOMEN: Soft with positive bowel sounds. EXTREMITIES: Show SCDs on the lower extremities. There is some mild swelling of the left knee. The re is a Rodriguez catheter in place. The Rodriguez catheter will be removed today. He is continuing on some IV fluids. Physical therapy has been requested. LABORATORY DATA: This morning show sodium 137, potassium 4.1, chloride 106, BUN is 25, creatinine is 1.4. Troponin was 0.04. LFTs are normal. CBC shows a WBC of 9.5, RBC 2.61, hemoglobin 8.4, hemato crit 30.3, platelet count is 137. We will follow up his CBC, modify his IV fluids. Physical therapy needs to see the patient to start mobilizing the patient. Currently, he is continuing on his home meds, his eyedrops, Protonix 20 mg daily, Lovenox 30 mg subQ daily, Flomax 0.4 mg daily. He is on Dilaudid p.r.n. for pain and Zestril 20 mg daily, Tylenol p.r.n . Ana Colon MD cc: [id number] TT: 07/11/2016 10:34:04 Confirmation # [id number] Dictation # [id number] tn
[2016-07-11 11:40] LABS: ADD MANUAL DIFF? NO
[2016-07-11 11:41] LABS: BASO # 0.01 K/mm3 (0.0-2.0); BASO % 0.1 % (0.0-3.0); EOS # 0.1 (0.0-0.7); EOS % 1.2 % (1.5-5.0); GRAN # 7.41 (1.4-6.5); GRAN % 75.2 % (50.0-68.0); HEMATOCRIT 25.4 % (42.0-52.0); LYMPH % 10.1 % (22.0-35.0); MEAN CELL VOLUME 94.1 fL (80.0-105.0); MEAN PLATELET VOLUME 8.8 fl (7.0-11.0); MONO # 1.3 (0.1-0.6); MONO % 13.4 % (1.0-6.0); PLATELET COUNT 142 10^3/uL (120.0-450.0); RED CELL DISTRIBUTION WIDTH 13.1 % (11.5-14.5); WHITE BLOOD COUNT 9.9 10^3/ul (4.5-11.0)
--- NOTE | 2016-07-11 14:06 | PN ---
DATE: 07/11/2016 SUBJECTIVE: The patient is seen sitting in a chair on 5R. He underwent left hip surgery yesterday. He has no pain at rest. He denies any chest pain or dyspnea. CURRENT MEDICATIONS: Include Dilaudid, Flomax, Lovenox, Protonix and Zestril 20 mg daily as well as his eyedrops. OBJECTIVE: GENERAL: He is a very elderly man who is comfortable at rest. VITAL SIGNS: His blood pressure is 110/56 with a pulse of 86 and regular, respirations are 16. He i s afebrile. HEENT: No JVD. CHEST: A few scattered rhonchi noted. HEART: PMI displaced laterally with a systolic murmur at the left sternal border. ABDOMEN: Soft, nontender. Normal bowel sounds. EXTREMITIES: No edema. DIAGNOSTIC DATA: Hemoglobin and hematocrit 8.9 and 25.4 with a white count of 9.9, platelet count 14 2,000. BUN and creatinine 25 and 1.4. CK 291 with a negative MB fraction. IMPRESSION: 1. Clinically stable following a recent hip fracture and surgical repair. 2. Chronic right bundle branch block. 3. History of hypertension. RECOMMENDATIONS: From a cardiac standpoint, he appears stable at the present time. Current manageme nt should continue. Standard GI and DVT prophylaxis should continue as well. We will be happy to fo llow along as needed. Leoncio Bernal MD cc: [id number] TT: 07/11/2016 14:06:10 Confirmation # [id number] Dictation # [id number] tn
--- NOTE | 2016-07-11 15:31 | CARD ---
APPROVED REPORT EKG Measurement Heart [id number] [place] [id number] <Conclusion> Normal sinus rhythm Left axis deviation Right bundle branch block Abnormal ECG
[2016-07-11] MEDS: LUMIGAN OU SCH (21:12)
[2016-07-12] MEDS: Pantoprazole 20 mg EC Tab PO SCH (06:43)
[2016-07-12 08:31] LABS: ADD MANUAL DIFF? NO
[2016-07-12 08:47] LABS: ALKALINE PHOSPHATASE 70 U/L (38-133); ALT/SGPT 39 U/L (7-56); AST/SGOT 30 U/L (15-59); BILIRUBIN,TOTAL 0.6 mg/dL (0.2-1.3); BLOOD UREA NITROGEN 25 mg/dL (7-21); CARBON DIOXIDE 23 mmol/L (21-33); CHLORIDE 107 mmol/L (95-110); GFR AFRICAN-AMERICAN > 60; GLUCOSE,RANDOM 100 mg/dL (70-110); SODIUM 136 mmol/L (132-148); TOTAL PROTEIN 5.4 g/dL (5.8-8.3)
[2016-07-12] MEDS: Enoxaparin 30 mg Syringe SC SCH (09:51)
[2016-07-12] MEDS: [UNRECOGNIZED DRUG - OTHER] OS SCH (09:52)
[2016-07-12] MEDS: ALPHAGAN P 0.1% OS SCH (09:52)
[2016-07-12 10:18] LABS: BASO # 0.02 K/mm3 (0.0-2.0); BASO % 0.3 % (0.0-3.0); EOS # 0.3 (0.0-0.7); EOS % 3.5 % (1.5-5.0); GRAN # 5.18 (1.4-6.5); GRAN % 69.3 % (50.0-68.0); HEMATOCRIT 24.3 % (42.0-52.0); LYMPH # 0.9 (1.2-3.4); LYMPH % 12.3 % (22.0-35.0); MEAN CELL VOLUME 93.5 fL (80.0-105.0); MEAN CORPUSCULAR HEMOGLOBIN 32.7 pg (25.0-35.0); MONO # 1.1 (0.1-0.6); MONO % 14.6 % (1.0-6.0); PLATELET COUNT 151 10^3/uL (120.0-450.0); WHITE BLOOD COUNT 7.5 10^3/ul (4.5-11.0)
--- NOTE | 2016-07-12 10:44 | PN ---
DATE: 07/12/2016 The patient is an 89-year-old male status post left hip fracture repair. Nursing staff relates that there were no particular problems during the night. Rodriguez catheter has been removed. The patient is voiding. The patient ambulated once with physical therapy. PHYSICAL EXAMINATION: VITAL SIGNS: Temp is 98. Blood pressure is 128/74. Oxygen saturation is 96% on room air. GENERAL: He is alert and oriented x 3. NECK: Supple. LUNGS: Clear. HEART: An S1, S2 rhythm. ABDOMEN: Soft with positive bowel sounds. Surgical site is dry. EXTREMITIES: No evidence of edema. LABORATORY DATA: Labs are currently pending. PLAN: The patient is continuing on DVT prophylaxis at this time along with eye drops for his history of macular degeneration and history of detached retina. He is on Flomax for BPH, Protonix for GI pr ophylaxis, and lisinopril 20 mg daily. We will continue to monitor the patient closely. Continue ph ysical therapy. Await followup CBC. Discussion with GI is a recommendation. If his hemoglobin is n ot improving, he may require a transfusion. Ana Colon MD cc: [id number] TT: 07/12/2016 10:42:47 Confirmation # [id number] Dictation # [id number] drew
[2016-07-12 11:50] LABS: ADD MANUAL DIFF? NO
[2016-07-12 11:59] LABS: BASO # 0.02 K/mm3 (0.0-2.0); BASO % 0.2 % (0.0-3.0); EOS # 0.2 (0.0-0.7); EOS % 2.9 % (1.5-5.0); GRAN # 5.76 (1.4-6.5); GRAN % 68.7 % (50.0-68.0); HEMATOCRIT 24.5 % (42.0-52.0); LYMPH # 1.1 (1.2-3.4); LYMPH % 13.2 % (22.0-35.0); MEAN CELL VOLUME 93.5 fL (80.0-105.0); MEAN CORPUSCULAR HEMOGLOBIN 32.8 pg (25.0-35.0); MEAN CORPUSCULAR HGB CONC 35.1 g/dl (31.0-37.0); MEAN PLATELET VOLUME 9.5 fl (7.0-11.0); MONO # 1.3 (0.1-0.6); PLATELET COUNT 151 10^3/uL (120.0-450.0); RED CELL DISTRIBUTION WIDTH 12.9 % (11.5-14.5); WHITE BLOOD COUNT 8.4 10^3/ul (4.5-11.0)
[2016-07-12] MEDS: LUMIGAN OU SCH (21:14)
--- NOTE | 2016-07-12 22:11 | PN ---
DATE: 07/12/2016 SUBJECTIVE: This patient was seen and evaluated earlier. The patient is comfortable. The patient s een and discussed with the patient's daughter yesterday. The patient has history of constipation. R estarted on Colace. PHYSICAL EXAMINATION: VITAL SIGNS: Stable. Blood pressure 110/56, respirations 16, pulse 86. HEENT: Atraumatic, anicteric. NECK: Supple. HEART: S1, S2 heard. LUNGS: Bilateral air entry present. ABDOMEN: Soft. There is no mass palpable. No tenderness. EXTREMITIES: Status post left hip surgery. LABORATORY DATA: Hemoglobin 8.9, hematocrit 25.4. IMPRESSION: Chronic anemia, status post hip fracture surgery, history of diverticulosis and hemorrho ids. GI workup. Last colonoscopy was 2014. RECOMMENDATIONS: Would recommend to continue the stool softeners, Colace. IF needed, then will add MiraLax. Thank you very much for allowing us to participate in the care of the patient. Kory Lima MD cc: [id number] TT: 07/12/2016 22:10:22 Confirmation # [id number] Dictation # [id number] robert
--- NOTE | 2016-07-12 22:21 | CON ---
DATE: 07/10/2016 This patient was seen and evaluated earlier. This 89-year-old patient with a past medical history of hypertension and diabetes, chronic kidney disease, chronic anemia, presented [facility] The patient was found to have left hip pain and noticed to have a fracture of the left hip. The patient was also found to have a hemoglobin of 10.8. GI consult was requested to evaluate this. The patient has a history of chronic anemia, had an upper GI and colonoscopy done in 2012. EGD was nega tive. Colonoscopy: History of polyps. The patient recommended a colonoscopy in 3 years' time. A r epeat colonoscopy again done in 2014 and it was negative for any GI source of blood loss and there we re hemorrhoids noticed. Diverticulosis noted. The patient's hemoglobin in the ER was about 10.8. I t dropped to 9.8. The patient did have no obvious source of blood loss noticed. The patient had a h ip surgery earlier. No obvious bleeding per rectum. Denies any bleeding per rectum or melena. The patient has been taking Colace twice daily for his chronic constipation. Other past medical history significant for urinary tract infection. ALLERGIES: ALLERGIC TO PENICILLIN. SOCIAL HISTORY: Denies smoking or alcohol . PAST MEDICAL HISTORY: Significant for BPH, macular degeneration, , past medical history of hype rtension, chronic kidney disease. REVIEW OF SYSTEMS: Positive as above. Other systems reviewed. PHYSICAL EXAMINATION: GENERAL: The patient is lying on the bed, not in acute distress. VITAL SIGNS: Pulse 82, temperature is 98, blood pressure is 140/69, respirations 19, O2 saturation 9 6%. HEENT: Atraumatic, anicteric. NECK: Supple. HEART: S1, S2 heard. LUNGS: Bilateral air entry present. ABDOMEN: Soft, no tenderness. EXTREMITIES: SCDs present. LABORATORY DATA: Hemoglobin 10.1, hematocrit 29.3, WBC 10.5, platelets 166. MCV is normal at 94.8. Chemistry shows BUN is 26 and creatinine 1.3. IMPRESSION: This 89-year-old patient with chronic anemia, history of colonic polyp, had a colonoscop y done in 2014, which was negative except for diverticulosis and hemorrhoids. Upper endoscopy done eduar james in the past in 2010 was negative. No obvious documented bleeding per rectum or melena, has ad mitted with a hemoglobin of 10.8, remained stable; it has come down to 9.8. Status post hip surgery. PLAN: 1. Would recommend to continue the stool softeners. 2. Close followup of the hemoglobin, hematocrit and gastrointestinal prophylaxis. We will follow up the blood count. At the present time, no plan for any GI intervention or procedure. We will contin ue to closely follow up her care and suggest further management gastrointestinal perspective based on the clinical course. Kory Lima MD cc: [id number] TT: 07/12/2016 22:20:55 Confirmation # [id number] Dictation # [id number] mn
[2016-07-13 06:57] LABS: ADD MANUAL DIFF? NO
[2016-07-13 07:19] LABS: ALKALINE PHOSPHATASE 75 U/L (38-133); ALT/SGPT 39 U/L (7-56); AST/SGOT 32 U/L (15-59); BILIRUBIN,TOTAL 0.9 mg/dL (0.2-1.3); BLOOD UREA NITROGEN 24 mg/dL (7-21); CALCIUM 8.4 mg/dL (8.4-10.5); CARBON DIOXIDE 25 mmol/L (21-33); CHLORIDE 106 mmol/L (98-107); GFR AFRICAN-AMERICAN > 60; GLUCOSE,RANDOM 121 mg/dL (70-110); POTASSIUM 3.9 mmol/L (3.6-5.0); SODIUM 140 mmol/L (132-148); TOTAL PROTEIN 6.1 g/dL (5.8-8.3)
[2016-07-13 07:40] LABS: BASO # 0.07 K/mm3 (0.0-2.0); BASO % 0.9 % (0.0-3.0); EOS # 0.3 (0.0-0.7); EOS % 3.5 % (1.5-5.0); GRAN # 5.63 (1.4-6.5); GRAN % 69.4 % (50.0-68.0); HEMATOCRIT 26.1 % (42.0-52.0); LYMPH # 1.2 (1.2-3.4); LYMPH % 14.4 % (22.0-35.0); MEAN CELL VOLUME 96.3 fL (80.0-105.0); MEAN CORPUSCULAR HEMOGLOBIN 32.1 pg (25.0-35.0); MEAN CORPUSCULAR HGB CONC 33.3 g/dl (31.0-37.0); MEAN PLATELET VOLUME 9.9 fl (7.0-11.0); MONO % 11.8 % (1.0-6.0); PLATELET COUNT 167 10^3/uL (120.0-450.0); RED CELL DISTRIBUTION WIDTH 12.7 % (11.5-14.5); WHITE BLOOD COUNT 8.1 10^3/ul (4.5-11.0)
[2016-07-13 08:54] VITALS: RESP 18
[2016-07-13] MEDS: Pantoprazole 20 mg EC Tab PO SCH (09:07)
[2016-07-13] MEDS: Enoxaparin 30 mg Syringe SC SCH (09:09)
[2016-07-13] MEDS: ALPHAGAN P 0.1% OS SCH (09:16)
[2016-07-13] MEDS: [UNRECOGNIZED DRUG - OTHER] OS SCH (09:17)
--- NOTE | 2016-07-13 13:06 | PN ---
DATE: 07/13/2016 Seen and examined at the bedside this afternoon. Daughter is at the bedside. He is out of bed to [facility] chair. Reported having a large bowel movement with relief. No reports of any melena or brigh t red blood. No acute overnight events reported. VITAL SIGNS: Temperature is 98.7, blood pressure 151/66, pulse 78, respirations 18, 94% room air. LABORATORIES: WBC is 8.1, H and H is 8.7 and 26.1, platelets is 167. Sodium 140, K 3.9, BUN 24, cre atinine is 1.3. LFTs are within normal limits. H and H is steady. PHYSICAL EXAMINATION: HEENT: Sclera is anicteric. NECK: Supple. CARDIAC: S1, S2. LUNGS: With decreased breath sounds, but good air entry, no rales or wheeze. ABDOMEN: With bowel sounds, soft, nontender, no organomegaly. EXTREMITIES: Status post left hip surgery. NEUROLOGIC: Awake, alert, and oriented. ASSESSMENT: Chronic anemia, status post hip fracture, status post open reduction internal fixation, history of diverticulosis, hemorrhoids, constipation which is resolved. The patient's last colonosco py was back in 2014. PLAN: The patient is back on iron. He is also on stool softener and continue gastrointestinal proph ylaxis. He is on Protonix. The patient is on Dilaudid for pain and he is also on Lovenox. Monitor CBC and for overt gastrointestinal bleed. The patient was seen and case discussed with Dr. Lima. Heaven Martínez HENRI cc: [id number] TT: 07/13/2016 13:05:19 Confirmation # [id number] Dictation # [id number] en
[2016-07-13] MEDS ORDERED: Bupivacaine 0.5% Inj(30mL) IJ ONE (14:40)
[2016-07-13] MEDS ORDERED: MethylPREDNISolone Depo 40 mg/ml Inj IM ONE (14:40)
--- NOTE | 2016-07-13 16:34 | PCM.PSYCH ---
Initial Psychiatric Evaluation - Initial Psychiatric Evaluation Legal Status: Capacity Chief Complaint (in patient's own words): Depression status post fall and status post left hip fracture repair Patient's Reaction to Hospitalization: resigning History of Present Illness and Precipitating Events: The patient is an 88-year-old recently white male who has suffered the slings and arrows of falling, fracturing his left hip, compounding his difficulties of dealing with the of his this past summer. He was interviewed in the presence of his daughter Eileen who visits him presently, calls him daily, and lives in [facility]. The patient is a retired a [employer]. He had been happily for over 60 years. He has no psychiatric or substance abuse or familial psychiatric history but he has become somewhat more demoralized in his present state His daughter indicates that the patient was never very social individual and since his half-way spends much time either reading the newspaper or playing with a computer were engaged in computer activities. On the other hand the patient indicates, the daughter concurs, that the he has lost a number of friends and relatives Current Medications: Active Medications Generic Name Dose Route Start Last Admin Trade Name Freq PRN Reason Stop Dose Admin Acetaminophen 650 mg 07/09/16 15:00 07/13/16 11:50 Tylenol 325mg Tab PO 650 mg Q4H PRN Administration Pain, moderate (4-7) Docusate Sodium 100 mg 07/11/16 18:00 07/13/16 09:06 Colace PO 100 mg BID MAX Administration Enoxaparin Sodium 30 mg 07/11/16 10:00 07/13/16 09:09 Lovenox SC 30 mg DAILY MAX Administration Protocol Ferrous Sulfate 324 mg 07/12/16 14:00 07/13/16 09:07 Feosol PO 324 mg TID MAX Administration Home Med 1 unit 07/10/16 10:00 07/13/16 09:17 Home Med OS 1 unit DAILY MAX Administration Home Med 1 unit 07/10/16 10:00 07/13/16 09:17 Home Med OS 1 unit DAILY MAX Administration Home Med 1 unit 07/09/16 23:14 07/12/16 21:14 Home Med OU 1 unit HS MAX Administration Home Med 0 unit 07/12/16 10:00 07/13/16 09:16 Home Med OS 1 unit DAILY MAX Administration Hydromorphone HCl 0.5 mg 07/10/16 10:39 07/13/16 09:09 Dilaudid SC 0.5 mg Q4H PRN Administration Pain, severe (8-10) Lisinopril 20 mg 07/10/16 10:00 07/13/16 09:07 Zestril PO 20 mg DAILY MAX Administration Pantoprazole Sodium 20 mg 07/10/16 07:30 07/13/16 09:07 Protonix Ec Tab PO 20 mg 0730 MAX Administration Tamsulosin HCl 0.4 mg 07/10/16 10:00 07/13/16 09:07 Flomax PO 0.4 mg DAILY MAX Administration Past Psychiatric History - Past Psychiatric History Previous Treatment History: None Prior Professional Help: None Prior Psychiatric Treatment: None History of Abuse: Denies History of ETOH/Drug Use: Denies History of Family Illness: Denies Pertinent Medical Hx (Current Medical&Sleep Prob, Allergies): Allergies Allergy/AdvReac Type Severity Reaction Status Date / Time Penicillins Allergy RASH Verified 07/09/16 08:32 Tamsulosin [Flomax] 0.4 mg PO DAILY 11/13/14 Bimatoprost [Lumigan] 1 drop BOTHEYES HS 02/05/15 Bromfenac Sodium [Prolensa] 1 drop LEFTEYE DAILY 02/05/15 Brimonidine 0.15% [Alphagan P 0.15% Opht] 1 drop OU DAILY 07/09/16 Homatropine HBr [Homatropine Hydrobromide] 1 drop LEFTEYE DAILY 07/09/16 Lisinopril [Zestril] 20 mg PO DAILY 07/09/16 Omeprazole 20 mg PO DAILY 07/09/16 Review of Systems - Constitutional Constitutional: UN - EENT Eyes: UNREMARKABLE Ears: UNREMARKABLE Nose/Mouth/Throat: UNREMARKABLE - Respiratory Respiratory: UNREMARKABLE - Gastrointestinal Gastrointestinal: UNREMARKABLE - Genitourinary Genitourinary: UNREMARKABLE - Reproductive: Male Reproductive:Male: UNREMARKABLE - Musculoskeletal Musculoskeletal: As Par HPI - Integumentary Integumentary: UNREMARKABLE - Neurological Neurological: UNREMARKABLE - Psychiatric Psychiatric: UNREMARKABLE - Endocrine Endocrine: UNREMARKABLE - Hematologic/Lymphatic Hematologic: UNREMARKABLE Mental Status Examination - Personal Presentation Personal Presentation: Looks younger than stated age - Affect Affect: Other - Motor Activity Motor Activity: Calm - Reliability in Providing Information Reliability in Providing Information: Good - Mood Mood: Neutral - Formal Thought Process Formal Thought Process: No Impairment - Obsessions/Compulsions Obsessions: No Compulsions: No - Cognitive Functions Orientation: Person, Place, Situation, Time Sensorium: Alert Attention/Concentration: Attentive Estimate of Intelligence: Above Average Judgement: Intact, as evidence by: Good judgement Memory: Remote intact, as evidenced by: Other - Risk Risk: Other - Strength & Assets Inventory Strength & Assets Inventory: Intelligence, Family support, Employment history, Skills, Life experience, Cooperative - Limitations Limitations: Living alone DSM 5 DX - DSM 5 DSM 5 Diagnosis: Adjustment disorder with features of anxiety and depression - Recommended/Plan of Treatment Treatment Recommendations and Plan of Treatment: Patient could benefit from supportive therapy. I have recommended a greater social engagement but patient is described as baseline isolative I have discussed with daughter the possibility of him seeing a therapist but that this is unlikely to happen. In the event that he does change his mind I will provide him the name of a local psychotherapist that I believe would be helpful for him. I do not think the patient needs antidepressant or anxiolytic medication at this juncture. Prognosis: Good
[2016-07-13 18:01] VITALS: BP 121/59; PULSE 83; TEMP 97.9; O2SAT 96
--- NOTE | 2016-07-13 18:35 | PROCN ---
DATE: 07/13/2016 The patient has been complaining of left knee pain since his left hip fracture which occurred on 06/2016 and he was operated with a pin on 07/10/2016. The effusion that he had in the knee from the t ramón of that injury was down now and he just has complaints of osteoarthritic kind of pain, mostly on the medial side of the knee joint where the arthritis is. So we took the opportunity before he is di scharged to give him a Depo-Medrol and cortisone shot and Marcaine so he could undergo therapy at a [facility] at rehab. The cortisone should last a couple of weeks to help him get through his initial stage of therapy. FINAL DIAGNOSIS: Osteoarthritis of the left knee, postoperative and post-injury. We will see how the cortisone shot works for mild osteoarthritis of his left knee and no fractures pr esent, because of posttraumatic arthritic condition of his left knee. Nathan Morales DO cc: [id number] TT: 07/13/2016 18:35:11 Confirmation # [id number] Dictation # [id number] drew
--- NOTE | 2016-07-14 08:41 | DS ---
An 89-year-old male status post left hip fracture repair, status post left knee effusion, management by orthopedics. He received a Depo-Medrol shot in the left knee. PHYSICAL EXAMINATION: VITAL SIGNS: Blood pressure is 121/59, temp is 97.9, respiratory rate was 18, oxygen saturation was 96% on room air. GENERAL: He was alert and oriented x 3. NECK: Supple, no JVD. HEART: Regular S1, S2 rhythm. ABDOMEN: Soft with positive bowel sounds. EXTREMITIES: Show no evidence of edema. The surgical site was dry. The patient will be discharged to subacute rehab to [facility] for physical and occupatio nal therapy. He will continue Colace 100 mg b.i.d., Feosol 325 mg 3 times a day, Flomax 0.4 mg daily . He will be on Prolensa eye drops to the left eye daily, Lumigan eye drop to both eyes at bedtime, Alphagan 0.15% ophthalmic drops to the left eye daily and homatropine 1 drop to the left eye daily. He will also be on omeprazole 20 mg daily and Flomax 0.4 mg daily. CONCLUSION: He is status post left hip fracture, status post left knee effusion removal and Depo-Me drol shot. He has anemia felt to be secondary to surgery. He will be on his iron. He was seen by Ilana Mendoza and felt that the patient could be monitored as an outpatient with followup of his CBC today. He w ould be followed by orthopedics at the rehab facility and was also seen by Dr. Weber of the [facility] service who felt that the patient would benefit from supportive social engagement, but at this par ticular point in time the benefit from local psychotherapy was not an indicated candidate at this [facility] for any anxiolytic or antidepressant therapy. He will be followed up at the rehab facility. Ana Colon MD cc: [id number] TT: 07/14/2016 08:40:33 robert
== END 2016-07-13 18:54 | DRG 481 ==
LOC: ED 08:26 → ERH 11:13 → 5RSO 13:08
PROVIDERS: ADMIT Internal Medicine; ATTEND Internal Medicine
PROC: 0QS704Z Reposition Left Upper Femur with Internal Fixation Device, Open Approach (ICD-10-PCS; principal; 2016-07-10 08:30)
PROC: 3E0U33Z Introduction of Anti-inflammatory into Joints, Percutaneous Approach (ICD-10-PCS; 2016-07-13)
PROC: 3E0U3BZ Introduction of Anesthetic Agent into Joints, Percutaneous Approach (ICD-10-PCS; 2016-07-13)
DX: S72.142A Displaced intertrochanteric fracture of left femur, initial encounter for closed fracture (principal); M62.82 Rhabdomyolysis; L89.151 Pressure ulcer of sacral region, stage 1; E11.22 Type 2 diabetes mellitus with diabetic chronic kidney disease; F03.90 Unspecified dementia, unspecified severity, without behavioral disturbance, psychotic disturbance, mood disturbance, and anxiety; D64.9 Anemia, unspecified; I12.9 Hypertensive chronic kidney disease with stage 1 through stage 4 chronic kidney disease, or unspecified chronic kidney disease; S83.92XA Sprain of unspecified site of left knee, initial encounter; J98.11 Atelectasis; W01.0XXA Fall on same level from slipping, tripping and stumbling without subsequent striking against object, initial encounter; I44.7 Left bundle-branch block, unspecified; I45.10 Unspecified right bundle-branch block; Y92.009 Unspecified place in unspecified non-institutional (private) residence as the place of occurrence of the external cause; N18.9 Chronic kidney disease, unspecified; K21.9 Gastro-esophageal reflux disease without esophagitis; H40.9 Unspecified glaucoma; K57.90 Diverticulosis of intestine, part unspecified, without perforation or abscess without bleeding; F43.23 Adjustment disorder with mixed anxiety and depressed mood; H35.30 Unspecified macular degeneration; K59.09 Other constipation; N40.0 Benign prostatic hyperplasia without lower urinary tract symptoms; Z79.899 Other long term (current) drug therapy; Z86.010 Personal history of colon polyps; Z87.440 Personal history of urinary (tract) infections; Z88.0 Allergy status to penicillin; K29.70 Gastritis, unspecified, without bleeding; M17.32 Unilateral post-traumatic osteoarthritis, left knee; M25.462 Effusion, left knee; H26.9 Unspecified cataract; Z87.81 Personal history of (healed) traumatic fracture; Z87.898 Personal history of other specified conditions; R00.0 Tachycardia, unspecified; R09.02 Hypoxemia; T88.59XA Other complications of anesthesia, initial encounter; R01.1 Cardiac murmur, unspecified